=== PATIENT | female | born 1950 | race Caucasian/White ===

== ENCOUNTER 2017-12-02 13:44 | Outpatient (CLI) | payer MEDICARE | END 2017-12-02 13:45 | disposition home or self-care (01) | LOC: BICMAMMO 13:44 | PROVIDERS: ATTEND Internal Medicine Geriatric Medicine | DX: Z12.31 Encounter for screening mammogram for malignant neoplasm of breast (principal); Z80.3 Family history of malignant neoplasm of breast | CPT/HCPCS: 77063; 77067 ==

== ENCOUNTER 2022-09-10 13:11 | Inpatient (IN) | payer MEDICARE ==
[~2022-09-10 13:11] MED LIST: Iopamidol-370 76% 500 ML MDV (1 ML CHARGE) ONE
[2022-09-10 13:37] LABS: #Eosinphils 0.2 thou/uL (0.0-0.7); #Lymphocytes 1.2 thou/uL (1.20-3.40); #Neutrophils 8.2 thou/uL (1.40-6.50); %Basophils 0.1 % (0.0-1.0); %Eosinophils 1.4 % (0.0-10.0); %Lymphocytes 11.5 % (21.0-51.0); %Monocytes 9.3 % (0.0-10.0); %Neutrophils 77.7 % (42.0-75.0); Hemoglobin 14.5 g/dL (12.0-16.0); Mean Corpuscular HGB CONC 31.7 g/dL (32.0-36.0); Mean Corpuscular Hemoglobin 27.9 pg (27.0-31.0); Mean Corpuscular Volume 88.1 fl (78.0-98.0); Mean Platelet Volume 8.1 fL (7.4-10.4); Platelet Count 337 10x3/uL (130-400); Red Blood Cell (RBC) Count 5.19 mill/uL (4.20-5.40); White Blood Cell (WBC) Count 10.6 10x3/uL (4.8-10.8)
[2022-09-10 13:58] LABS: ALT (SGPT) 9 U/L (8-55); AST (SGOT) 11 U/L (5-34); Albumin 3.5 g/dL (3.4-4.8); Alkaline Phosphatase 65 U/L (40-110); Anion Gap 14 mmol/L (10-20); BUN (Urea Nitrogen) 28 mg/dL (9.8-20.1); Bilirubin, Total 0.8 mg/dL (0.2-1.2); Calc. Creatinine Clearance 0 mL/min (70-130); Calcium 9.1 mg/dL (7.8-10.44); Carbon Dioxide 24 mmol/L (23-31); Chloride 97 mmol/L (98-107); Estimated GFR 53; Globulin 3.2 g/dL (2.4-3.5); Glucose 128 mg/dL (83-110); Protein, Total 6.7 g/dL (5.8-8.1); Sodium 132 mmol/L (136-145)
[2022-09-10] MEDS ORDERED: Ondansetron PF 4 MG/2 ML Vial IVP PRN (18:08)
[2022-09-10] MEDS ORDERED: Pantoprazole 40 MG VIAL ONE (18:10)
[2022-09-10] MEDS ORDERED: DC Electrolyte Protocol FS ONE (18:38)
[2022-09-10] MEDS ORDERED: cefTRIAXone\\ROCEPHIN 1 GM in Sodium Chloride 0.9% 100 ML IVPB SCH (18:45)
[2022-09-10] MEDS ORDERED: Lidocaine 2% PF 5 ML VIAL ONE (19:04)
[2022-09-10] MEDS ORDERED: Bupivacaine/Epinephrine 0.25% 30 ML VIAL ONE (19:04)
[2022-09-10] MEDS ORDERED: Fentanyl 250 MCG/5 ML VIAL ONE (19:14)
[2022-09-10] MEDS ORDERED: cefOXitin 2 GM VIAL ONE (19:18)
[2022-09-10] MEDS ORDERED: Sodium Chloride 0.9% 100 ML ONE (19:19)
[2022-09-10] MEDS ORDERED: Electrolyte Replacement Protocol 1 EACH FS PRN (19:27)
[2022-09-10] MEDS ORDERED: Dexamethasone 20 MG/5 ML VIAL ONE (19:44)
[2022-09-10] MEDS ORDERED: Succinylcholine Chloride 100 MG/5 ML SYRINGE FS ONE (19:44)
[2022-09-10] MEDS ORDERED: NEOSTIGMINE 3 MG/3 ML SYR 3 MG/3 ML SYRINGE ONE (19:44)
[2022-09-10] MEDS ORDERED: Lidocaine 1% PF 5 ML VIAL ONE (19:44)
[2022-09-10] MEDS ORDERED: Glycopyrrolate 0.2 MG/ML 5 ML SYRINGE ONE (19:44)
[2022-09-10] MEDS ORDERED: Phenylephrine 10 MG/ML VIAL ONE (19:44)
[2022-09-10] MEDS ORDERED: Ondansetron PF 4 MG/2 ML Vial ONE (19:44)
[2022-09-10] MEDS ORDERED: PROPOFOL 200 MG/20 ML VIAL ONE (19:44)
[2022-09-10] MEDS ORDERED: Rocuronium Bromide 10 MG/ML (10ML VIAL) ONE (19:44)
[2022-09-10] MEDS ORDERED: Promethazine HCl 25 MG/ML VIAL IM PRN (21:44)
[2022-09-10] MEDS ORDERED: Ondansetron HCl/PF 4 MG/2 ML Vial IVP PRN (21:44)
[2022-09-10] MEDS ORDERED: Morphine 2 MG/ML VIAL SLOW IVP PRN (21:44)
[2022-09-10] MEDS ORDERED: FENTANYL 50 MCG/ML 1 ML VIAL ONE (22:00)
[2022-09-11] MEDS: Sodium Chloride 0.9% 1,000 ML IV SCH ×2 (00:14→09:00)
[2022-09-11] MEDS: metroNIDAZOLE 500 MG in Premix Bag 1 BAG IVPB SCH ×4 (00:15→17:05)
[2022-09-11] MEDS: Potassium Chloride 20 MEQ in Premix Bag 1 BAG IVPB SCH ×4 (00:34→03:55)
[2022-09-11] MEDS: Pantoprazole 40 MG VIAL IVP SCH ×3 (00:35→20:12)
[2022-09-11 00:39] VITALS: BMI 32.8
[2022-09-11] MEDS: cefOXitin 2 GM in Sodium Chloride 0.9% 100 ML IVPB SCH ×3 (03:16→19:47)
[2022-09-11 05:30] LABS: #Lymphocytes 0.6 thou/uL (1.20-3.40); #Monocytes 0.8 thou/uL (0.11-0.59); #Neutrophils 12.3 thou/uL (1.40-6.50); %Eosinophils 0.1 % (0.0-10.0); %Lymphocytes 4.4 % (21.0-51.0); %Monocytes 5.6 % (0.0-10.0); Hemoglobin 13.5 g/dL (12.0-16.0); Mean Corpuscular HGB CONC 33.6 g/dL (32.0-36.0); Mean Corpuscular Volume 89.3 fl (78.0-98.0); Mean Platelet Volume 8.3 fL (7.4-10.4); Platelet Count 262 10x3/uL (130-400); Red Blood Cell (RBC) Count 4.49 mill/uL (4.20-5.40); White Blood Cell (WBC) Count 13.7 10x3/uL (4.8-10.8)
[2022-09-11] MEDS ORDERED: Potassium Chloride 20 MEQ TAB PO SCH (05:30)
[2022-09-11 05:54] LABS: ALT (SGPT) 9 U/L (8-55); AST (SGOT) 11 U/L (5-34); Alkaline Phosphatase 58 U/L (40-110); Anion Gap 14 mmol/L (10-20); BUN (Urea Nitrogen) 20 mg/dL (9.8-20.1); Bilirubin, Total 0.6 mg/dL (0.2-1.2); Calc. Creatinine Clearance 51 mL/min (70-130); Calcium 8.3 mg/dL (7.8-10.44); Carbon Dioxide 23 mmol/L (23-31); Chloride 102 mmol/L (98-107); Estimated GFR 48; Globulin 2.7 g/dL (2.4-3.5); Glucose 125 mg/dL (83-110); Potassium 3.5 mmol/L (3.5-5.1); Protein, Total 5.7 g/dL (5.8-8.1); Sodium 135 mmol/L (136-145)
[2022-09-11] MEDS ORDERED: Sodium Chloride 0.9% 500 ML IV SCH (07:30)
[2022-09-11] MEDS ORDERED: Haloperidol Lactate 5 MG/ML VIAL SLOW IVP SCH (19:45)
[2022-09-11] MEDS: Atorvastatin Calcium 40 MG TAB PO SCH (20:49)
[2022-09-12] MEDS: metroNIDAZOLE 500 MG in Premix Bag 1 BAG IVPB SCH ×5 (00:12→23:42)
[2022-09-12] MEDS: Sodium Chloride 0.9% 1,000 ML IV SCH ×3 (04:01→23:42)
[2022-09-12] MEDS: cefOXitin 2 GM in Sodium Chloride 0.9% 100 ML IVPB SCH ×3 (04:02→20:40)
[2022-09-12 06:06] LABS: #Eosinphils 0.2 thou/uL (0.0-0.7); #Lymphocytes 1.1 thou/uL (1.20-3.40); #Monocytes 0.9 thou/uL (0.11-0.59); #Neutrophils 8.6 thou/uL (1.40-6.50); %Basophils 0.1 % (0.0-1.0); %Eosinophils 2.3 % (0.0-10.0); %Monocytes 8.7 % (0.0-10.0); Hemoglobin 11.8 g/dL (12.0-16.0); Mean Corpuscular HGB CONC 33.9 g/dL (32.0-36.0); Mean Corpuscular Hemoglobin 30.6 pg (27.0-31.0); Mean Corpuscular Volume 90.3 fl (78.0-98.0); Mean Platelet Volume 7.7 fL (7.4-10.4); Platelet Count 242 10x3/uL (130-400); RBC Distribution Width 12.2 % (11.5-14.5); Red Blood Cell (RBC) Count 3.85 mill/uL (4.20-5.40); White Blood Cell (WBC) Count 10.9 10x3/uL (4.8-10.8)
[2022-09-12 06:28] LABS: ALT (SGPT) 7 U/L (8-55); AST (SGOT) 11 U/L (5-34); Albumin 2.2 g/dL (3.4-4.8); Alkaline Phosphatase 51 U/L (40-110); Anion Gap 11 mmol/L (10-20); BUN (Urea Nitrogen) 13 mg/dL (9.8-20.1); Bilirubin, Total 0.5 mg/dL (0.2-1.2); Calc. Creatinine Clearance 67 mL/min (70-130); Calcium 8.1 mg/dL (7.8-10.44); Carbon Dioxide 20 mmol/L (23-31); Chloride 108 mmol/L (98-107); Estimated GFR 68; Globulin 2.4 g/dL (2.4-3.5); Glucose 93 mg/dL (83-110); Potassium 3.1 mmol/L (3.5-5.1); Protein, Total 4.6 g/dL (5.8-8.1); Sodium 136 mmol/L (136-145)
[2022-09-12] MEDS: Lisinopril/Hydrochlorothiazide 10 mg/12.5 mg Tablet PO SCH (07:54)
[2022-09-12] MEDS ORDERED: Potassium Chloride 20 MEQ TAB PO SCH (08:00)
[2022-09-12] MEDS: Pantoprazole 40 MG VIAL IVP SCH ×2 (09:36→20:41)
[2022-09-12 15:33] LABS: #Eosinphils 0.3 thou/uL (0.0-0.7); #Lymphocytes 1.6 thou/uL (1.20-3.40); #Neutrophils 10.8 thou/uL (1.40-6.50); %Eosinophils 2.3 % (0.0-10.0); %Lymphocytes 11.6 % (21.0-51.0); %Monocytes 7.3 % (0.0-10.0); %Neutrophils 78.8 % (42.0-75.0); Hemoglobin 13.1 g/dL (12.0-16.0); Mean Corpuscular HGB CONC 32.7 g/dL (32.0-36.0); Mean Corpuscular Hemoglobin 29.6 pg (27.0-31.0); Mean Corpuscular Volume 90.8 fl (78.0-98.0); Mean Platelet Volume 7.5 fL (7.4-10.4); Platelet Count 352 10x3/uL (130-400); RBC Distribution Width 12.1 % (11.5-14.5); Red Blood Cell (RBC) Count 4.42 mill/uL (4.20-5.40); White Blood Cell (WBC) Count 13.8 10x3/uL (4.8-10.8)
[2022-09-12] MEDS: Atorvastatin Calcium 40 MG TAB PO SCH (20:40)
[2022-09-12] MEDS: hydrALAZINE 20 MG/ML VIAL SLOW IVP PRN (20:53)
[2022-09-13] MEDS: cefOXitin 2 GM in Sodium Chloride 0.9% 100 ML IVPB SCH ×3 (03:44→21:06)
[2022-09-13] MEDS: metroNIDAZOLE 500 MG in Premix Bag 1 BAG IVPB SCH ×3 (05:14→17:42)
[2022-09-13 06:09] LABS: #Eosinphils 0.2 thou/uL (0.0-0.7); #Lymphocytes 1.6 thou/uL (1.20-3.40); #Monocytes 0.8 thou/uL (0.11-0.59); #Neutrophils 7.5 thou/uL (1.40-6.50); %Basophils 0.1 % (0.0-1.0); %Eosinophils 2.3 % (0.0-10.0); %Monocytes 8.2 % (0.0-10.0); %Neutrophils 73.4 % (42.0-75.0); Hemoglobin 11.6 g/dL (12.0-16.0); Mean Corpuscular HGB CONC 33.9 g/dL (32.0-36.0); Mean Corpuscular Hemoglobin 30.4 pg (27.0-31.0); Mean Corpuscular Volume 89.8 fl (78.0-98.0); Mean Platelet Volume 7.6 fL (7.4-10.4); Platelet Count 280 10x3/uL (130-400); RBC Distribution Width 12.2 % (11.5-14.5); Red Blood Cell (RBC) Count 3.83 mill/uL (4.20-5.40); White Blood Cell (WBC) Count 10.2 10x3/uL (4.8-10.8)
[2022-09-13 06:32] LABS: ALT (SGPT) 8 U/L (8-55); AST (SGOT) 9 U/L (5-34); Albumin 2.4 g/dL (3.4-4.8); Alkaline Phosphatase 52 U/L (40-110); Anion Gap 10 mmol/L (10-20); BUN (Urea Nitrogen) 10 mg/dL (9.8-20.1); Bilirubin, Total 0.5 mg/dL (0.2-1.2); Calc. Creatinine Clearance 71 mL/min (70-130); Calcium 8.1 mg/dL (7.8-10.44); Carbon Dioxide 22 mmol/L (23-31); Chloride 107 mmol/L (98-107); Estimated GFR 72; Globulin 2.4 g/dL (2.4-3.5); Glucose 108 mg/dL (83-110); Potassium 2.9 mmol/L (3.5-5.1); Protein, Total 4.8 g/dL (5.8-8.1); Sodium 136 mmol/L (136-145)
[2022-09-13] MEDS: Pantoprazole 40 MG VIAL IVP SCH (08:27)
[2022-09-13] MEDS: Potassium Chloride 20 MEQ in Lactated Ringer's 1,000 ML IV SCH ×2 (08:28→17:44)
[2022-09-13] MEDS: Potassium Bicarbonate/Cit Ac 20 MEQ TAB PO SCH ×2 (08:28→13:59)
[2022-09-13] MEDS: Lisinopril/Hydrochlorothiazide 10 mg/12.5 mg Tablet PO SCH (08:28)
[2022-09-13] MEDS ORDERED: traMADol HCl 50 MG TAB PO PRN (12:29)
[2022-09-13] MEDS ORDERED: Acetaminophen 500 MG TAB PO PRN (12:29)
[2022-09-13] MEDS ORDERED: Acetaminophen 500 MG TAB PO SCH (12:30)
[2022-09-13 18:49] LABS: Anion Gap 15 mmol/L (10-20); BUN (Urea Nitrogen) 10 mg/dL (9.8-20.1); Calc. Creatinine Clearance 73 mL/min (70-130); Calcium 8.7 mg/dL (7.8-10.44); Carbon Dioxide 22 mmol/L (23-31); Chloride 106 mmol/L (98-107); Estimated GFR 74; Glucose 100 mg/dL (83-110); Potassium 3.9 mmol/L (3.5-5.1); Sodium 139 mmol/L (136-145)
[2022-09-13] MEDS: Atorvastatin Calcium 40 MG TAB PO SCH (21:05)
[2022-09-14] MEDS: metroNIDAZOLE 500 MG in Premix Bag 1 BAG IVPB SCH ×3 (00:05→13:52)
[2022-09-14] MEDS: hydrALAZINE 20 MG/ML VIAL SLOW IVP PRN (00:05)
[2022-09-14] MEDS: Potassium Chloride 20 MEQ in Lactated Ringer's 1,000 ML IV SCH ×2 (01:37→13:52)
[2022-09-14] MEDS: cefOXitin 2 GM in Sodium Chloride 0.9% 100 ML IVPB SCH ×2 (04:11→13:52)
[2022-09-14 06:14] LABS: #Eosinphils 0.2 thou/uL (0.0-0.7); #Lymphocytes 1.2 thou/uL (1.20-3.40); #Monocytes 0.6 thou/uL (0.11-0.59); #Neutrophils 8.1 thou/uL (1.40-6.50); %Basophils 0.3 % (0.0-1.0); %Eosinophils 1.5 % (0.0-10.0); %Lymphocytes 12.2 % (21.0-51.0); %Monocytes 6.3 % (0.0-10.0); %Neutrophils 79.7 % (42.0-75.0); Hemoglobin 11.3 g/dL (12.0-16.0); Mean Corpuscular HGB CONC 33.7 g/dL (32.0-36.0); Mean Corpuscular Hemoglobin 30.4 pg (27.0-31.0); Mean Corpuscular Volume 90.2 fl (78.0-98.0); Mean Platelet Volume 7.8 fL (7.4-10.4); Platelet Count 349 10x3/uL (130-400); RBC Distribution Width 12.3 % (11.5-14.5); Red Blood Cell (RBC) Count 3.71 mill/uL (4.20-5.40); White Blood Cell (WBC) Count 10.2 10x3/uL (4.8-10.8)
[2022-09-14 06:31] LABS: ALT (SGPT) 9 U/L (8-55); AST (SGOT) 11 U/L (5-34); Albumin 2.2 g/dL (3.4-4.8); Alkaline Phosphatase 50 U/L (40-110); Anion Gap 10 mmol/L (10-20); BUN (Urea Nitrogen) 8 mg/dL (9.8-20.1); Bilirubin, Total 0.4 mg/dL (0.2-1.2); Calc. Creatinine Clearance 57 mL/min (70-130); Calcium 8.3 mg/dL (7.8-10.44); Carbon Dioxide 26 mmol/L (23-31); Chloride 107 mmol/L (98-107); Estimated GFR 56; Globulin 2.6 g/dL (2.4-3.5); Glucose 111 mg/dL (83-110); Potassium 3.5 mmol/L (3.5-5.1); Protein, Total 4.8 g/dL (5.8-8.1); Sodium 139 mmol/L (136-145)
[2022-09-14] MEDS ORDERED: Potassium Chloride 20 MEQ TAB PO SCH ×2 (08:00→14:00)
[2022-09-14] MEDS: Lisinopril/Hydrochlorothiazide 10 mg/12.5 mg Tablet PO SCH (08:37)
[2022-09-14] MEDS ORDERED: traZODone HCl 50 MG TAB PO PRN (16:13)
[2022-09-14] MEDS: traZODone HCl 50 MG TAB PO SCH (20:37)
[2022-09-14] MEDS: Atorvastatin Calcium 40 MG TAB PO SCH (20:37)
[2022-09-15] MEDS: Lisinopril/Hydrochlorothiazide 10 mg/12.5 mg Tablet PO SCH (08:22)
[2022-09-15 08:37] LABS: #Basophils 0.1 thou/uL (0.0-0.2); #Eosinphils 0.3 thou/uL (0.0-0.7); #Lymphocytes 1.8 thou/uL (1.20-3.40); #Monocytes 0.8 thou/uL (0.11-0.59); #Neutrophils 4.9 thou/uL (1.40-6.50); %Basophils 0.7 % (0.0-1.0); %Eosinophils 3.3 % (0.0-10.0); %Lymphocytes 23.2 % (21.0-51.0); %Neutrophils 62.8 % (42.0-75.0); Hemoglobin 10.8 g/dL (12.0-16.0); Mean Corpuscular HGB CONC 32.1 g/dL (32.0-36.0); Mean Corpuscular Hemoglobin 29.3 pg (27.0-31.0); Mean Corpuscular Volume 91.1 fl (78.0-98.0); Mean Platelet Volume 6.9 fL (7.4-10.4); Platelet Count 354 10x3/uL (130-400); RBC Distribution Width 12.6 % (11.5-14.5); Red Blood Cell (RBC) Count 3.69 mill/uL (4.20-5.40); White Blood Cell (WBC) Count 7.9 10x3/uL (4.8-10.8)
[2022-09-15 08:57] LABS: Anion Gap 11 mmol/L (10-20); BUN (Urea Nitrogen) 7 mg/dL (9.8-20.1); Calc. Creatinine Clearance 87 mL/min (70-130); Calcium 8.3 mg/dL (7.8-10.44); Carbon Dioxide 28 mmol/L (23-31); Chloride 105 mmol/L (98-107); Estimated GFR 92; Glucose 102 mg/dL (83-110); Sodium 140 mmol/L (136-145)
[2022-09-15] MEDS: hydrALAZINE 20 MG/ML VIAL SLOW IVP PRN (19:02)
[2022-09-15] MEDS: Atorvastatin Calcium 40 MG TAB PO SCH (20:56)
[2022-09-15] MEDS: traZODone HCl 50 MG TAB PO SCH (20:56)
[2022-09-16 04:57] LABS: #Eosinphils 0.2 thou/uL (0.0-0.7); #Lymphocytes 1.9 thou/uL (1.20-3.40); #Monocytes 0.6 thou/uL (0.11-0.59); #Neutrophils 4.1 thou/uL (1.40-6.50); %Basophils 0.6 % (0.0-1.0); %Lymphocytes 27.6 % (21.0-51.0); %Monocytes 9.2 % (0.0-10.0); %Neutrophils 59.5 % (42.0-75.0); Hemoglobin 11.2 g/dL (12.0-16.0); Mean Corpuscular HGB CONC 30.9 g/dL (32.0-36.0); Mean Corpuscular Hemoglobin 28.3 pg (27.0-31.0); Mean Corpuscular Volume 91.7 fl (78.0-98.0); Mean Platelet Volume 6.9 fL (7.4-10.4); Platelet Count 414 10x3/uL (130-400); RBC Distribution Width 12.5 % (11.5-14.5); Red Blood Cell (RBC) Count 3.96 mill/uL (4.20-5.40); White Blood Cell (WBC) Count 6.9 10x3/uL (4.8-10.8)
[2022-09-16 05:24] LABS: Anion Gap 11 mmol/L (10-20); BUN (Urea Nitrogen) 7 mg/dL (9.8-20.1); Calc. Creatinine Clearance 87 mL/min (70-130); Calcium 8.5 mg/dL (7.8-10.44); Carbon Dioxide 29 mmol/L (23-31); Chloride 101 mmol/L (98-107); Estimated GFR 92; Glucose 105 mg/dL (83-110); Potassium 3.8 mmol/L (3.5-5.1); Sodium 137 mmol/L (136-145)
[2022-09-16] MEDS: Lisinopril/Hydrochlorothiazide 10 mg/12.5 mg Tablet PO SCH (09:34)
[2022-09-16 11:55] VITALS: BP 91/60; TEMP 97.9
== END 2022-09-16 16:40 | disposition home or self-care (01) | DRG 329 ==
LOC: ERS 13:11 → ERHOLD 18:16 → MSONC 22:56
PROVIDERS: ADMIT Internal Medicine; ATTEND Hospitalist
PROC: 0DB80ZZ Excision of Small Intestine, Open Approach (ICD-10-PCS; principal; 2022-09-10)
PROC: 0WQF0ZZ Repair Abdominal Wall, Open Approach (ICD-10-PCS; 2022-09-10)
PROC: 0D9670Z Drainage of Stomach with Drainage Device, Via Natural or Artificial Opening (ICD-10-PCS; 2022-09-10)
DX: K43.6 Other and unspecified ventral hernia with obstruction, without gangrene (principal); G93.41 Metabolic encephalopathy; K55.029 Acute infarction of small intestine, extent unspecified; E78.5 Hyperlipidemia, unspecified; I10 Essential (primary) hypertension; K80.20 Calculus of gallbladder without cholecystitis without obstruction; E87.6 Hypokalemia; Z90.710 Acquired absence of both cervix and uterus; Z87.891 Personal history of nicotine dependence
CPT/HCPCS: 36415; 70450; 74018; 74019; 74177; 80048; 80053; 83605; 83690; 84134; 85025; 88302; 88307; 96374; 97139; C1776; C9113; J0360; J0694; J1100; J1630; J1650; J2001; J2370; J2405; J2704; J3010; J3480; J3490; J7030; J7050; J7120; Q9967

== ENCOUNTER 2022-09-17 08:19 | Emergency (ER) | payer MEDICARE | END 2022-09-17 10:10 | disposition home or self-care (01) | LOC: ERS 08:19 | DX: Z48.01 Encounter for change or removal of surgical wound dressing (principal); E78.00 Pure hypercholesterolemia, unspecified; I10 Essential (primary) hypertension; Z87.891 Personal history of nicotine dependence; Z79.82 Long term (current) use of aspirin; Z79.899 Other long term (current) drug therapy | CPT/HCPCS: 99282 ==

== ENCOUNTER 2022-09-18 13:43 | Observation (INO) | payer MEDICARE ==
[2022-09-18] MEDS ORDERED: Iopamidol-370 76% 500 ML MDV (1 ML CHARGE) ONE (13:49)
[2022-09-18 16:58] LABS: #Eosinphils 0.1 thou/uL (0.0-0.7); #Monocytes 0.8 thou/uL (0.11-0.59); #Neutrophils 6.4 thou/uL (1.40-6.50); %Basophils 0.2 % (0.0-1.0); %Lymphocytes 21.4 % (21.0-51.0); %Monocytes 8.2 % (0.0-10.0); %Neutrophils 69.1 % (42.0-75.0); Hemoglobin 11.9 g/dL (12.0-16.0); Mean Corpuscular Hemoglobin 29.9 pg (27.0-31.0); Mean Corpuscular Volume 90.7 fl (78.0-98.0); Platelet Count 425 10x3/uL (130-400); RBC Distribution Width 12.3 % (11.5-14.5); White Blood Cell (WBC) Count 9.3 10x3/uL (4.8-10.8)
[2022-09-18 17:18] LABS: ALT (SGPT) 21 U/L (8-55); AST (SGOT) 27 U/L (5-34); Alkaline Phosphatase 57 U/L (40-110); Anion Gap 11 mmol/L (10-20); BUN (Urea Nitrogen) 12 mg/dL (9.8-20.1); Bilirubin, Total 0.2 mg/dL (0.2-1.2); Calc. Creatinine Clearance 0 mL/min (70-130); Calcium 8.7 mg/dL (7.8-10.44); Carbon Dioxide 32 mmol/L (23-31); Chloride 100 mmol/L (98-107); Estimated GFR 78; Glucose 105 mg/dL (83-110); Lipase 43 U/L (8-78); Potassium 3.5 mmol/L (3.5-5.1); Sodium 139 mmol/L (136-145)
[2022-09-18 18:31] LABS: Bilirubin Negative (Negative); Blood, Urine Negative (Negative); Clarity Turbid (Clear); Glucose, Urine (Dipstick) Normal (Negative); Ketone, Urine Negative (Negative); Leukocyte Negative Leu/uL (Negative); Nitrite Negative (Negative); Protein, Urine (Dipstick) Negative (Neg-Trace); Specific Gravity, Urine 1.009 (1.002-1.036); Urobilinogen Normal mg/dL (Less than 2); pH, Urine 7.5 (5.0-9.0)
[2022-09-18] MEDS ORDERED: Cefepime 2 GM VIAL ONE (19:32)
[2022-09-18] MEDS ORDERED: VANCOMYCIN 1.25 GM/250 ML BAG 1.25 GM in Premix Bag 1 BAG IVPB SCH (19:45)
[2022-09-18] MEDS ORDERED: Acetaminophen 325 MG TAB PO PRN (19:53)
[2022-09-18] MEDS ORDERED: Ondansetron ODT 4 MG TAB PO PRN (19:53)
[2022-09-18] MEDS ORDERED: HYDROcodone/Acetaminophen 5/325 mg Tablet PO PRN (19:53)
[2022-09-18] MEDS ORDERED: Ondansetron PF 4 MG/2 ML Vial IVP PRN (19:53)
[2022-09-18] MEDS ORDERED: Piperacillin/Tazobactam 3.375 GM in Sodium Chloride 0.9% 100 ML IVPB SCH (22:00)
[2022-09-18] MEDS ORDERED: Dextrose 5 % And 0.9 % NaCl 1,000 ML IV SCH (23:30)
[2022-09-19] MEDS: Piperacillin/Tazobactam 3.375 GM in Sodium Chloride 0.9% 100 ML IVPB SCH ×2 (02:52→09:29)
[2022-09-19 02:55] VITALS: BMI 28.8
[2022-09-19 06:44] LABS: #Eosinphils 0.2 thou/uL (0.0-0.7); #Lymphocytes 1.6 thou/uL (1.20-3.40); #Monocytes 0.6 thou/uL (0.11-0.59); #Neutrophils 4.4 thou/uL (1.40-6.50); %Basophils 0.4 % (0.0-1.0); %Eosinophils 2.7 % (0.0-10.0); %Lymphocytes 24.1 % (21.0-51.0); %Monocytes 8.5 % (0.0-10.0); %Neutrophils 64.4 % (42.0-75.0); Mean Corpuscular HGB CONC 33.5 g/dL (32.0-36.0); Mean Corpuscular Volume 89.6 fl (78.0-98.0); Platelet Count 357 10x3/uL (130-400); RBC Distribution Width 12.5 % (11.5-14.5); Red Blood Cell (RBC) Count 3.66 mill/uL (4.20-5.40); White Blood Cell (WBC) Count 6.8 10x3/uL (4.8-10.8)
[2022-09-19 06:54] LABS: Anion Gap 11 mmol/L (10-20); BUN (Urea Nitrogen) 9 mg/dL (9.8-20.1); Calc. Creatinine Clearance 81 mL/min (70-130); Calcium 8.4 mg/dL (7.8-10.44); Carbon Dioxide 29 mmol/L (23-31); Chloride 103 mmol/L (98-107); Estimated GFR 91; Glucose 96 mg/dL (83-110); Potassium 3.9 mmol/L (3.5-5.1); Sodium 139 mmol/L (136-145)
[2022-09-19 11:27] VITALS: BP 125/60; TEMP 98.3
== END 2022-09-19 17:41 | disposition home or self-care (01) ==
LOC: ERS 13:43 → T4-B 19:54
PROVIDERS: ADMIT Hospitalist; ATTEND Hospitalist
DX: T85.698A Other mechanical complication of other specified internal prosthetic devices, implants and grafts, initial encounter (principal); I10 Essential (primary) hypertension; F03.90 Unspecified dementia, unspecified severity, without behavioral disturbance, psychotic disturbance, mood disturbance, and anxiety; K80.20 Calculus of gallbladder without cholecystitis without obstruction; E78.00 Pure hypercholesterolemia, unspecified; Z87.891 Personal history of nicotine dependence; Z79.82 Long term (current) use of aspirin; Z79.899 Other long term (current) drug therapy; Z90.49 Acquired absence of other specified parts of digestive tract; Y81.3 Surgical instruments, materials and general- and plastic-surgery devices (including sutures) associated with adverse incidents
CPT/HCPCS: 74177; 80048; 80053; 81003; 82962; 83605; 83690; 85025 ×2; 87040; 87070; 87077; 87205; 93005; 96375; 96376; 97139; G0378 ×3; J3370; 36415; 36416; 87186; J0692; J2543; J3490; J7042; Q9967

== ENCOUNTER 2025-02-12 14:56 | Inpatient (IN) | payer OTHER ==
[~2025-02-12 14:56] MED LIST changes: +Iopamidol 370 76% 100 ML VIAL ONE; -Iopamidol-370 76% 500 ML MDV (1 ML CHARGE) ONE
[2025-02-12 15:51] LABS: #Basophils Less than 0.03 10x3/uL (0.0-0.2); #Eosinophils Less than 0.03 10x3/uL (0.0-0.7); #Monocytes 0.59 10x3/uL (0.11-0.59); #Neutrophils 10.02 10x3/uL (1.40-6.50); %Basophils 0.2 % (0.0-1.0); %Eosinophils 0.0 % (0.0-10.0); %Lymphocytes 6.1 % (21.0-51.0); %Monocytes 5.2 % (0.0-10.0); %Neutrophils 88.0 % (42.0-75.0); Hematocrit 37.7 % (36.0-47.0); Hemoglobin 12.7 g/dL (12.0-16.0); Mean Corpuscular Hemoglobin 30.0 pg (27.0-31.0); Mean Corpuscular Volume 89.1 fL (78.0-98.0); Platelet Count 271 10x3/uL (130-400); Red Blood Cell (RBC) Count 4.23 mill/uL (4.20-5.40); White Blood Cell (WBC) Count 11.39 10x3/uL (4.8-10.8)
[2025-02-12 16:13] LABS: CAUTI Indications for Culture Alt mental st,lethar; Glucose, Urine (Dipstick) Normal (Negative); Leukocyte Negative Leu/uL (Negative); Protein, Urine (Dipstick) 100 mg/dL (Neg-Trace); Specific Gravity, Urine 1.011 (1.002-1.036); WBC/HPF 0-3 HPF (0-3)
[2025-02-12 16:14] LABS: Bacteria/HPF 1+ HPF (None Seen)
[2025-02-12 16:15] LABS: Urine Culture Reflex No No
[2025-02-12 16:17] LABS: ALT (SGPT) 321 U/L (Less than 34); AST (SGOT) 620 U/L (11-34); Albumin 2.9 g/dL (3.1-4.5); Alkaline Phosphatase 87 U/L (40-110); Anion Gap 15 mmol/L (10-20); BUN (Urea Nitrogen) 16 mg/dL (9.8-20.1); Bilirubin, Total 0.6 mg/dL (0.3-1.2); Calc. Creatinine Clearance 0 mL/min (70-130); Calcium 8.6 mg/dL (7.8-10.44); Carbon Dioxide 22 mmol/L (23-31); Chloride 103 mmol/L (98-107); Globulin 3.5 g/dL (2.4-3.5); Glucose 108 mg/dL (83-110); Potassium 2.8 mmol/L (3.5-5.1); Sodium 137 mmol/L (136-145)
[2025-02-12] MEDS ORDERED: cefTRIAXone (ROCEPHIN) 1 GM VIAL ONE (17:25)
[2025-02-12] MEDS ORDERED: Potassium Chloride 20 MEQ (100 mL) BAG ONE (17:25)
[2025-02-12] MEDS ORDERED: Ondansetron PF 4 MG/2 ML Vial IVP PRN (18:46)
[2025-02-12 21:11] LABS: Acetaminophen Less than 10 mcg/mL (Less than 10)
[2025-02-13 01:33] VITALS: BMI 27.5
[2025-02-13 01:44] LABS: Potassium 2.7 mmol/L (3.5-5.1)
[2025-02-13] MEDS: Benzonatate 100 MG CAP PO SCH (03:16)
[2025-02-13] MEDS: Aspirin 325 MG TAB PO SCH (05:47)
[2025-02-13 06:13] LABS: Hematocrit 31.5 % (36.0-47.0); Hematocrit 31.7 % (36.0-47.0); Hemoglobin 10.0 g/dL (12.0-16.0); Hemoglobin 10.2 g/dL (12.0-16.0); Mean Corpuscular Hemoglobin 29.1 pg (27.0-31.0); Mean Corpuscular Volume 90.3 fL (78.0-98.0); Platelet Count 236 10x3/uL (130-400); Platelet Count 244 10x3/uL (130-400); Red Blood Cell (RBC) Count 3.51 mill/uL (4.20-5.40); White Blood Cell (WBC) Count 10.79 10x3/uL (4.8-10.8)
[2025-02-13 06:46] LABS: ALT (SGPT) 270 U/L (Less than 34); AST (SGOT) 454 U/L (11-34); Albumin 2.5 g/dL (3.1-4.5); Alkaline Phosphatase 70 U/L (40-110); Bilirubin, Direct 0.2 mg/dL (0.1-0.3); Bilirubin, Total 0.3 mg/dL (0.3-1.2); Cardiac Risk 2.3 (Less than 4.5); Cholesterol 95 mg/dl (< 200 Desired); HDL Cholesterol 41 mg/dL (>60 Neg Risk); LDL Cholesterol, Calculated 32 mg/dL; Triglycerides 108 mg/dL (Less than 150)
[2025-02-13 07:03] LABS: Anion Gap 12 mmol/L (10-20); BUN (Urea Nitrogen) 16 mg/dL (9.8-20.1); Calc. Creatinine Clearance 42 mL/min (70-130); Calcium 7.9 mg/dL (7.8-10.44); Carbon Dioxide 18 mmol/L (23-31); Chloride 109 mmol/L (98-107); Glucose 81 mg/dL (83-110); Magnesium 2.4 mg/dL (1.6-2.6); Potassium 2.7 mmol/L (3.5-5.1); Sodium 136 mmol/L (136-145)
[2025-02-13] MEDS: Heparin 10,000 UNITS/ 10 ML VIAL SLOW IVP SCH (07:04)
[2025-02-13 08:18] LABS: CK (CPK) 19030 U/L (29-168)
[2025-02-13] MEDS: Famotidine 20 MG TAB PO SCH (11:19)
[2025-02-13] MEDS: Floranex 1 GM Packet PO SCH (11:19)
[2025-02-13] MEDS: cefTRIAXone\\ROCEPHIN 1 GM in Sodium Chloride 0.9% 100 ML IVPB SCH (16:54)
[2025-02-13 19:33] LABS: Potassium 2.8 mmol/L (3.5-5.1)
[2025-02-13] MEDS: PNEUMOC 20-VAL CONJ-DIP CRM/PF 0.5 ML SYRINGE IM ONE (20:32)
[2025-02-13] MEDS ORDERED: Enoxaparin 30 MG (0.3 mL) SYRINGE SC SCH (21:00)
[2025-02-14 06:06] LABS: CK (CPK) 13042 U/L (29-168)
[2025-02-14 06:19] LABS: ALT (SGPT) 272 U/L (Less than 34); AST (SGOT) 416 U/L (11-34); Albumin 2.0 g/dL (3.1-4.5); Alkaline Phosphatase 65 U/L (40-110); Anion Gap 10 mmol/L (10-20); BUN (Urea Nitrogen) 13 mg/dL (9.8-20.1); Bilirubin, Total 0.3 mg/dL (0.3-1.2); Calc. Creatinine Clearance 43 mL/min (70-130); Calcium 7.6 mg/dL (7.8-10.44); Carbon Dioxide 19 mmol/L (23-31); Chloride 114 mmol/L (98-107); Globulin 2.4 g/dL (2.4-3.5); Glucose 78 mg/dL (83-110); Potassium 2.4 mmol/L (3.5-5.1); Sodium 141 mmol/L (136-145)
[2025-02-14] MEDS: Potassium Bicarbonate/Cit Ac 20 MEQ TAB PO SCH (06:36)
[2025-02-14 14:18] LABS: Anion Gap 15 mmol/L (10-20); BUN (Urea Nitrogen) 12 mg/dL (9.8-20.1); Calc. Creatinine Clearance 49 mL/min (70-130); Calcium 7.9 mg/dL (7.8-10.44); Carbon Dioxide 18 mmol/L (23-31); Chloride 111 mmol/L (98-107); Glucose 98 mg/dL (83-110); Potassium 3.4 mmol/L (3.5-5.1); Sodium 141 mmol/L (136-145)
[2025-02-15 05:32] LABS: Hematocrit 28.7 % (36.0-47.0); Hemoglobin 9.2 g/dL (12.0-16.0); Platelet Count 229 10x3/uL (130-400)
[2025-02-15 06:45] LABS: CK (CPK) 8992 U/L (29-168)
[2025-02-15 06:46] LABS: ALT (SGPT) 325 U/L (Less than 34); AST (SGOT) 408 U/L (11-34); Albumin 2.0 g/dL (3.1-4.5); Alkaline Phosphatase 69 U/L (40-110); Anion Gap 9 mmol/L (10-20); BUN (Urea Nitrogen) 11 mg/dL (9.8-20.1); Bilirubin, Total 0.2 mg/dL (0.3-1.2); Calc. Creatinine Clearance 47 mL/min (70-130); Calcium 7.6 mg/dL (7.8-10.44); Carbon Dioxide 21 mmol/L (23-31); Chloride 115 mmol/L (98-107); Globulin 2.5 g/dL (2.4-3.5); Glucose 99 mg/dL (83-110); Potassium 2.8 mmol/L (3.5-5.1); Sodium 142 mmol/L (136-145)
[2025-02-15] MEDS: Potassium Bicarbonate/Cit Ac 20 MEQ TAB PO SCH (07:55)
[2025-02-15] MEDS: Megestrol Acetate 800 MG/20 ML UDCUP PO SCH (07:55)
[2025-02-15 22:43] LABS: Bacteria/HPF None Seen HPF (None Seen); Glucose, Urine (Dipstick) Normal (Negative); Leukocyte Negative Leu/uL (Negative); Protein, Urine (Dipstick) 100 mg/dL (Neg-Trace); RBC/HPF 0-3 HPF (0-3); Specific Gravity, Urine 1.016 (1.002-1.036); WBC/HPF 0-3 HPF (0-3)
[2025-02-16 11:05] LABS: CK (CPK) 10362 U/L (29-168)
[2025-02-16 11:08] LABS: ALT (SGPT) 377 U/L (Less than 34); AST (SGOT) 390 U/L (11-34); Albumin 2.0 g/dL (3.1-4.5); Alkaline Phosphatase 73 U/L (40-110); Anion Gap 8 mmol/L (10-20); BUN (Urea Nitrogen) 10 mg/dL (9.8-20.1); Bilirubin, Total 0.3 mg/dL (0.3-1.2); Calc. Creatinine Clearance 59 mL/min (70-130); Calcium 7.6 mg/dL (7.8-10.44); Carbon Dioxide 18 mmol/L (23-31); Chloride 117 mmol/L (98-107); Globulin 2.6 g/dL (2.4-3.5); Glucose 131 mg/dL (83-110); Potassium 2.7 mmol/L (3.5-5.1); Sodium 140 mmol/L (136-145)
[2025-02-16] MEDS: NS 0.9% w/ 40 MEQ KCL 1,000 ML IV SCH (15:41)
[2025-02-16] MEDS: Potassium Bicarbonate/Cit Ac 20 MEQ TAB PO SCH (23:34)
[2025-02-17 05:09] LABS: Hematocrit 30.3 % (36.0-47.0); Hemoglobin 9.8 g/dL (12.0-16.0); Platelet Count 277 10x3/uL (130-400)
[2025-02-17 05:40] LABS: CK (CPK) 8929 U/L (29-168)
[2025-02-17 05:53] LABS: ALT (SGPT) 355 U/L (Less than 34); AST (SGOT) 306 U/L (11-34); Albumin 1.9 g/dL (3.1-4.5); Alkaline Phosphatase 68 U/L (40-110); Anion Gap 5 mmol/L (10-20); BUN (Urea Nitrogen) 10 mg/dL (9.8-20.1); Bilirubin, Total 0.3 mg/dL (0.3-1.2); Calc. Creatinine Clearance 65 mL/min (70-130); Calcium 7.7 mg/dL (7.8-10.44); Carbon Dioxide 20 mmol/L (23-31); Chloride 120 mmol/L (98-107); Globulin 2.6 g/dL (2.4-3.5); Glucose 95 mg/dL (83-110); Potassium 2.8 mmol/L (3.5-5.1); Sodium 142 mmol/L (136-145)
[2025-02-17] MEDS: Potassium Bicarbonate/Cit Ac 20 MEQ TAB PO SCH ×2 (10:41→15:29)
[2025-02-17 11:23] LABS: dsDNA IgG Antibody 0.7 IU/mL (<10 Negative)
[2025-02-17 11:27] LABS: Magnesium 1.7 mg/dL (1.6-2.6)
[2025-02-17 11:33] LABS: ANA Symphony (Qualitative) Negative (Negative); ANA Symphony (Quantitative) Less than 0.1 Ratio (< 0.7 Negative)
[2025-02-17] MEDS: Magnesium 2 GM/50 ML(in water) 2 GM in Premix 1 BAG IVPB SCH (13:11)
[2025-02-17] MEDS ORDERED: NS 0.9% w/ 40 MEQ KCL 1,000 ML IV SCH (15:30)
[2025-02-17 15:46] VITALS: BMI 27.5
[2025-02-17 17:32] LABS: Potassium, Urine 39.7 mmol/L; Sodium, Urine 138.0 mmol/L (Not Available)
[2025-02-17 18:12] LABS: Anion Gap 7 mmol/L (10-20); BUN (Urea Nitrogen) 11 mg/dL (9.8-20.1); Calc. Creatinine Clearance 69 mL/min (70-130); Calcium 7.9 mg/dL (7.8-10.44); Carbon Dioxide 21 mmol/L (23-31); Glucose 99 mg/dL (83-110); Potassium 3.7 mmol/L (3.5-5.1); Sodium 138 mmol/L (136-145)
[2025-02-17 18:17] LABS: Chloride 114 mmol/L (98-107)
[2025-02-18 05:58] LABS: CK (CPK) 7961 U/L (29-168)
[2025-02-18 06:07] LABS: ALT (SGPT) 370 U/L (Less than 34); AST (SGOT) 276 U/L (11-34); Albumin 1.8 g/dL (3.1-4.5); Alkaline Phosphatase 67 U/L (40-110); Anion Gap 8 mmol/L (10-20); BUN (Urea Nitrogen) 9 mg/dL (9.8-20.1); Bilirubin, Total 0.3 mg/dL (0.3-1.2); Calc. Creatinine Clearance 73 mL/min (70-130); Calcium 7.7 mg/dL (7.8-10.44); Carbon Dioxide 24 mmol/L (23-31); Chloride 111 mmol/L (98-107); Globulin 2.7 g/dL (2.4-3.5); Glucose 99 mg/dL (83-110); Magnesium 2.3 mg/dL (1.6-2.6); Potassium 3.6 mmol/L (3.5-5.1); Sodium 139 mmol/L (136-145)
[2025-02-18] MEDS: Potassium Bicarbonate/Cit Ac 20 MEQ TAB PO SCH (12:40)
[2025-02-18] MEDS: Albumin 25% 25 GM (100 mL) BOT IVPB SCH (12:40)
[2025-02-19 05:25] LABS: Hematocrit 28.7 % (36.0-47.0); Hemoglobin 8.9 g/dL (12.0-16.0); Platelet Count 242 10x3/uL (130-400)
[2025-02-19 06:14] LABS: CK (CPK) 4379 U/L (29-168)
[2025-02-19 06:15] LABS: ALT (SGPT) 267 U/L (Less than 34); AST (SGOT) 173 U/L (11-34); Albumin 2.8 g/dL (3.1-4.5); Alkaline Phosphatase 49 U/L (40-110); Anion Gap 9 mmol/L (10-20); BUN (Urea Nitrogen) 11 mg/dL (9.8-20.1); Bilirubin, Total 0.4 mg/dL (0.3-1.2); Calc. Creatinine Clearance 80 mL/min (70-130); Calcium 8.1 mg/dL (7.8-10.44); Carbon Dioxide 24 mmol/L (23-31); Chloride 112 mmol/L (98-107); Globulin 1.9 g/dL (2.4-3.5); Glucose 92 mg/dL (83-110); Potassium 3.3 mmol/L (3.5-5.1); Sodium 142 mmol/L (136-145)
[2025-02-19] MEDS: Potassium Bicarbonate/Cit Ac 20 MEQ TAB PO SCH (10:56)
[2025-02-19] MEDS: Acetaminophen 325 MG TAB PO PRN (16:12)
[2025-02-20 05:25] LABS: ALT (SGPT) 234 U/L (Less than 34); AST (SGOT) 115 U/L (11-34); Albumin 2.8 g/dL (3.1-4.5); Alkaline Phosphatase 52 U/L (40-110); Anion Gap 11 mmol/L (10-20); BUN (Urea Nitrogen) 12 mg/dL (9.8-20.1); Bilirubin, Total 0.4 mg/dL (0.3-1.2); Calc. Creatinine Clearance 85 mL/min (70-130); Calcium 8.2 mg/dL (7.8-10.44); Carbon Dioxide 23 mmol/L (23-31); Chloride 112 mmol/L (98-107); Globulin 1.8 g/dL (2.4-3.5); Glucose 91 mg/dL (83-110); Potassium 3.3 mmol/L (3.5-5.1); Sodium 143 mmol/L (136-145)
[2025-02-21 08:49] LABS: ALT (SGPT) 208 U/L (Less than 34); AST (SGOT) 71 U/L (11-34); Albumin 2.7 g/dL (3.1-4.5); Alkaline Phosphatase 62 U/L (40-110); Anion Gap 10 mmol/L (10-20); BUN (Urea Nitrogen) 12 mg/dL (9.8-20.1); Bilirubin, Total 0.4 mg/dL (0.3-1.2); CK (CPK) 1232 U/L (29-168); Calc. Creatinine Clearance 92 mL/min (70-130); Calcium 8.4 mg/dL (7.8-10.44); Carbon Dioxide 22 mmol/L (23-31); Chloride 112 mmol/L (98-107); Globulin 2.4 g/dL (2.4-3.5); Glucose 111 mg/dL (83-110); Potassium 2.9 mmol/L (3.5-5.1); Sodium 141 mmol/L (136-145)
[2025-02-21 10:14] LABS: Kappa Lambda Light Chain Ratio 1.12 (0.26-1.65)
[2025-02-21] MEDS: Potassium Bicarbonate/Cit Ac 25 MEQ TAB PO SCH ×2 (10:41→22:12)
[2025-02-21 15:53] LABS: Anion Gap 11 mmol/L (10-20); BUN (Urea Nitrogen) 11 mg/dL (9.8-20.1); Calc. Creatinine Clearance 89 mL/min (70-130); Calcium 8.4 mg/dL (7.8-10.44); Carbon Dioxide 23 mmol/L (23-31); Chloride 110 mmol/L (98-107); Glucose 95 mg/dL (83-110); Potassium 3.4 mmol/L (3.5-5.1); Sodium 141 mmol/L (136-145)
[2025-02-22] MEDS ORDERED: GUAIFENESIN SF SOLN 200 MG/10 ML UDCUP PO PRN (00:17)
[2025-02-22] MEDS: Benzonatate 100 MG CAP PO PRN (00:24)
[2025-02-22 05:45] LABS: ALT (SGPT) 161 U/L (Less than 34); AST (SGOT) 46 U/L (11-34); Albumin 2.5 g/dL (3.1-4.5); Alkaline Phosphatase 59 U/L (40-110); Anion Gap 10 mmol/L (10-20); BUN (Urea Nitrogen) 10 mg/dL (9.8-20.1); Bilirubin, Total 0.4 mg/dL (0.3-1.2); CK (CPK) 625 U/L (29-168); Calc. Creatinine Clearance 89 mL/min (70-130); Calcium 8.4 mg/dL (7.8-10.44); Carbon Dioxide 23 mmol/L (23-31); Chloride 111 mmol/L (98-107); Globulin 2.3 g/dL (2.4-3.5); Glucose 94 mg/dL (83-110); Potassium 3.1 mmol/L (3.5-5.1); Sodium 141 mmol/L (136-145)
[2025-02-22 12:14] LABS: A/G Ratio 0.8 (0.7-1.7); Albumin 1.8 g/dL (2.9-4.4); Alpha 1 0.3 g/dL (0.0-0.4); Alpha 2 0.8 g/dL (0.4-1.0); Beta 0.6 g/dL (0.7-1.3); Gamma 0.5 g/dL (0.4-1.8); Globulin, Total 2.2 g/dL (2.2-3.9); M-Spike Not Observed g/dL (Not Observed)
[2025-02-22 15:14] LABS: Albumin-Ur 9.2 % (.); Alpha 1 - Ur 9.6 % (.); Alpha 2 - Ur 18.4 % (.); Beta-Ur 50.4 % (.); Gamma-Ur 12.5 % (.); M-Spike,% 28.6 % (Not Observed); Protein, Urine 172.3 mg/dL (Not Estab.)
[2025-02-23 05:49] LABS: ALT (SGPT) 121 U/L (Less than 34); AST (SGOT) 30 U/L (11-34); Albumin 2.4 g/dL (3.1-4.5); Alkaline Phosphatase 56 U/L (40-110); Anion Gap 8 mmol/L (10-20); BUN (Urea Nitrogen) 10 mg/dL (9.8-20.1); Bilirubin, Total 0.4 mg/dL (0.3-1.2); CK (CPK) 333 U/L (29-168); Calc. Creatinine Clearance 87 mL/min (70-130); Calcium 8.3 mg/dL (7.8-10.44); Carbon Dioxide 24 mmol/L (23-31); Chloride 113 mmol/L (98-107); Globulin 2.2 g/dL (2.4-3.5); Glucose 90 mg/dL (83-110); Magnesium 1.8 mg/dL (1.6-2.6); Potassium 3.8 mmol/L (3.5-5.1); Sodium 141 mmol/L (136-145)
[2025-02-24 05:13] LABS: #Basophils 0.04 10x3/uL (0.0-0.2); #Eosinophils 0.03 10x3/uL (0.0-0.7); #Monocytes 0.64 10x3/uL (0.11-0.59); #Neutrophils 5.54 10x3/uL (1.40-6.50); %Basophils 0.5 % (0.0-1.0); %Eosinophils 0.4 % (0.0-10.0); %Lymphocytes 21.8 % (21.0-51.0); %Monocytes 8.0 % (0.0-10.0); %Neutrophils 68.9 % (42.0-75.0); Hematocrit 28.3 % (36.0-47.0); Hemoglobin 8.9 g/dL (12.0-16.0); Mean Corpuscular Hemoglobin 29.6 pg (27.0-31.0); Mean Corpuscular Volume 94.0 fL (78.0-98.0); Platelet Count 241 10x3/uL (130-400); Red Blood Cell (RBC) Count 3.01 mill/uL (4.20-5.40); White Blood Cell (WBC) Count 8.03 10x3/uL (4.8-10.8)
[2025-02-24 05:25] LABS: ALT (SGPT) 96 U/L (Less than 34); AST (SGOT) 22 U/L (11-34); Albumin 2.4 g/dL (3.1-4.5); Alkaline Phosphatase 61 U/L (40-110); Anion Gap 9 mmol/L (10-20); BUN (Urea Nitrogen) 10 mg/dL (9.8-20.1); Bilirubin, Total 0.4 mg/dL (0.3-1.2); CK (CPK) 219 U/L (29-168); Calc. Creatinine Clearance 90 mL/min (70-130); Calcium 8.3 mg/dL (7.8-10.44); Carbon Dioxide 23 mmol/L (23-31); Chloride 112 mmol/L (98-107); Globulin 2.3 g/dL (2.4-3.5); Glucose 88 mg/dL (83-110); Magnesium 1.8 mg/dL (1.6-2.6); Potassium 3.4 mmol/L (3.5-5.1); Sodium 141 mmol/L (136-145)
[2025-02-24 08:18] VITALS: TEMP 98.9
[2025-02-24 11:47] VITALS: BP 124/74
[2025-02-27 09:16] LABS: Cortisol,Free Ur 42 ug/L (Undefined); Cortisol,Ur Free 24 Hr 40 ug/24 hr (6-42)
== END 2025-02-24 11:50 | DRG 558 ==
LOC: ERS 14:56 → MSONC 18:52 → 2NO 02-13 06:21 → MSONC 02-13 16:46
PROVIDERS: ADMIT Student in an Organized Health Care Education/Training Program; ATTEND Student in an Organized Health Care Education/Training Program
DX: M62.82 Rhabdomyolysis (principal); N17.9 Acute kidney failure, unspecified; I24.89 Other forms of acute ischemic heart disease; N39.0 Urinary tract infection, site not specified; G30.9 Alzheimer's disease, unspecified; E87.6 Hypokalemia; R79.89 Other specified abnormal findings of blood chemistry; R74.01 Elevation of levels of liver transaminase levels; N18.30 Chronic kidney disease, stage 3 unspecified; E78.00 Pure hypercholesterolemia, unspecified; E87.8 Other disorders of electrolyte and fluid balance, not elsewhere classified; D63.1 Anemia in chronic kidney disease; K57.90 Diverticulosis of intestine, part unspecified, without perforation or abscess without bleeding; W19.XXXA Unspecified fall, initial encounter; F02.B0 Dementia in other diseases classified elsewhere, moderate, without behavioral disturbance, psychotic disturbance, mood disturbance, and anxiety; Z82.49 Family history of ischemic heart disease and other diseases of the circulatory system; Z90.710 Acquired absence of both cervix and uterus; Z87.891 Personal history of nicotine dependence; Z79.899 Other long term (current) drug therapy
CPT/HCPCS: 36415; 36416; 51701; 70450; 70551; 74177; 76770; 80053; 80061; 80076; 80143; 80307; 81001; 82088; 82436; 82530; 82533; 82550; 82570; 83605; 83735; 83880; 83883; 84100; 84132; 84133; 84155; 84156; 84165; 84166; 84244; 84300; 84443; 84484; 85014; 85018; 85025; 85027; 85049; 85730; 86038; 86225; 86235; 87040; 87086; 93005; 93306; 93976; 96365; 96375; J0696; J1644; J3475; J3480; J7030; J7120; P9047; Q9967